=== PATIENT | female | born 1975 | race Caucasian/White ===

== ENCOUNTER 2017-01-01 01:23 | Emergency (ER) | payer OTHER ==
[~2017-01-01 01:23] MED LIST: *DENIES; BEN25 PO; BP MED; CYMBALTA20 PO; FLAG500TAB PO; GABAPENTIN; LYRICA100 MG PO; NEUR300 PO; NEXIUM; NEXIUM40 PO; NORCO1 TAB PO; PERCOCET1 TA4 PO; SEROQUEL300 MG PO; V5 PO; VENTOLIN; VENTOLIN HFA INH; VITAMIN B PO; ZOL50 PO; ZYP5 PO; ZYPREXA; ZYPREXA20 MG PO
[2017-01-01 01:44] LABS: ASCORBIC ACID (UR NOT ORDER) NEG (NEG); BILIRUBIN, URINE NEGATIVE (NEG); ER URINALYSIS TAT 0 Hrs 00 Mins; KETONE, URINE NEGATIVE (NEG); LEUKOCYTE ESTERASE(NOT OR NEG (NEG); WBC (NOT ORDERED) (RFLEX) 0 (0-5)
[2017-01-01 01:52] LABS: NITRITE (URINE) NEG (NEG)
[2017-01-01 01:53] LABS: AMPHETAMINES (NOT ORD) NEG (NEG); BARBITURATES (NOT ORDERED NEG (NEG); BENZODIAZEPINES (NOT ORD) NEG (NEG); CANNABINOIDS (THC) NEG (NEG); COCAINE (NOT ORDERED) POS (NEG); OPIATES NEG (NEG); PHENCYCLIDINE(PCP) NEG (NEG); TRICYCLICS NEG (NEG)
== END 2017-01-01 01:57 | disposition left against medical advice (07) ==
LOC: ER 01:23
PROVIDERS: Nurse Practitioner Acute Care
DX: K08.89 Other specified disorders of teeth and supporting structures (principal); F20.9 Schizophrenia, unspecified; F19.10 Other psychoactive substance abuse, uncomplicated; F17.200 Nicotine dependence, unspecified, uncomplicated; J45.909 Unspecified asthma, uncomplicated; I10 Essential (primary) hypertension; F41.9 Anxiety disorder, unspecified; F32.9 Major depressive disorder, single episode, unspecified; Z79.899 Other long term (current) drug therapy
CPT/HCPCS: 80053; 80305; 80307; 81001; 84484; 84703; 85025; 99285; A9270-GY